=== PATIENT | female | born 1960 | race Caucasian/White ===

== ENCOUNTER 2016-09-14 12:17 | Emergency (ER) | payer BC ==
[2016-09-14 14:41] VITALS: BP 128/85
--- NOTE | 2016-09-14 15:13 | ED ---
Laceration/Wound HPI - HPI Summary HPI Summary: Patient is a 56yo otherwise healthy F who presents after sustaining a superficial laceration to the right wrist while making ceramic figures. She states there was minimal blood loss, she washed and wrapped it immediately. She denies numbness/tingling or color or temperature changes. She denies other injuries. She notes to CTS in the right wrist, but has never had a laceration to the area. She is otherwise heatlhy. She denies known particles in the wrist and states the ceramic cut was clean and laceration was obtained with 1 large particle. She took an Ibuprofen this morning for CTS but denies other medication use. UTD with tetanus. - History of Current Complaint Stated Complaint: ARM LACERATION Time Seen by Provider: 09/14/16 12:28 Hx Obtained From: Patient Mechanism of Injury: Sharp/Blunt Trauma - ceramic shard Aggravating: Nothing Alleviating: Nothing Timing: Constant Onset Severity: Mild Current Severity: None Pain Intensity: 0 Pain Scale Used: 0-10 Numeric Associated Signs & Symptoms: Negative Related Hx: Dominant Hand (Right) - Allergy/Home Medications Allergies/Adverse Reactions: Allergies Allergy/AdvReac Type Severity Reaction Status Date / Time Metronidazole [From Flagyl] Allergy Hives Verified 07/21/16 11:11 PMH/Surg Hx/FS Hx/Imm Hx Previously Healthy: Yes Endocrine/Hematology History: Denies: Hx Diabetes Cardiovascular History: Denies: Hx Hypertension, Hx Pacemaker/ICD Respiratory History: Reports: Hx Asthma - LAST ATTACK 20+ YRS AGO Musculoskeletal History: Denies: Hx Osteoporosis Sensory History: Reports: Hx Contacts or Glasses - DRIVING Denies: Hx Hearing Aid Opthamlomology History: Reports: Hx Contacts or Glasses - DRIVING Psychiatric History: Denies: Hx Panic Disorder - Cancer History Hx Chemotherapy: No Hx Radiation Therapy: No - Immunization History Hx Pertussis Vaccination: No Immunizations Up to Date: Yes Infectious Disease History: No Infectious Disease History: Denies: Traveled Outside the [place] in Last 30 Days - Social History Occupation: Employed Full-time Lives: With Family Alcohol Use: Daily Alcohol Amount: GLASS OF WINE Hx Substance Use: No Substance Use Type: Reports: None Hx Tobacco Use: No Smoking Status (MU): Never Smoked Tobacco Do You Chew or Dip Tobacco: No Have You Chewed or Dipped Tobacco in the LAST YEAR: No Review of Systems Constitutional: Negative Eyes: Negative Respiratory: Negative Gastrointestinal: Negative Positive: no symptoms reported, see HPI Musculoskeletal: Negative Positive: Other - small 1.5cm laceration to the ventral surface of the right wrist Neurological: Negative All Other Systems Reviewed And Are Negative: Yes Physical Exam Triage Information Reviewed: Yes Vital Signs On Initial Exam: Initial Vitals Temp Pulse Resp BP Pulse Ox 97.9 F 65 20 130/85 100 09/14/16 12:20 09/14/16 12:20 09/14/16 12:20 09/14/16 12:20 09/14/16 12:20 Vital Signs Reviewed: Yes Appearance: Positive: Well-Appearing, No Pain Distress, Well-Nourished Skin: Positive: Warm, Skin Color Reflects Adequate Perfusion, Other - laceration to the ventral surface of the right wrist Head/Face: Positive: Normal Head/Face Inspection Eyes: Positive: Normal, EOMI, QAMAR, Conjunctiva Clear Neck: Positive: Supple, Nontender, No Lymphadenopathy Respiratory/Lung Sounds: Positive: Clear to Auscultation, Breath Sounds Present Cardiovascular: Positive: Normal, RRR Musculoskeletal: Positive: Normal, Strength/ROM Intact Neurological: Positive: Normal, Sensory/Motor Intact AVPU Assessment: Alert - Odalys Coma Scale Best Eye Response: 4 - Spontaneous Best Motor Response: 6 - Obeys Commands Best Verbal Response: 5 - Oriented Procedures - Laceration/Wound Repair 1 Location: upper extremity Description: Linear Anesthesia: 1.0% Betadine Prep?: No Laceration/Wound Explored: clean Suture Type: Prolene Number of Sutures: 3 Layer Closure?: No Sterile Dressing Applied?: No Diagnostics - Vital Signs Vital Signs Temp Pulse Resp BP Pulse Ox 09/14/16 13:25 97.7 F 67 18 128/85 100 09/14/16 12:20 97.9 F 65 20 130/85 100 - Laboratory Lab Statement: Any lab studies that have been ordered have been reviewed, and results considered in the medical decision making process. Laceration Repair Course/Dx - Course Course Of Treatment: Irrigated wound with 30cc normal saline. no debridement necessary. Clean linear laceration of the right wrist - superficially with no NV compromise. Tetanus already UTD. Lidocaine 2% without epi used for local anesthetic. 3 non-absorbable prolene sutures placed. Patient tolerated well. Minimal bleeding. Placed telfa dressing over wound with compression dressing d/ t bleeding. Patient will follow up next week with PCP for suture removal. Instructions given. No xray or abx needed. - Differential Dx Differental Diagnoses: Avulsion, Laceration, Tendon Laceration - Clinical Impression Provider Diagnoses: Laceration of wrist Discharge - Discharge Plan Condition: Stable Disposition: HOME Patient Education Materials: Care For Your Stitches (ED) Referrals: Roberta Josue P[facility] EXTRACTION TENDER [Primary Care Provider] - Additional Instructions: Suture removal in 7 days. Keep covered until tomorrow afternoon. You may then switch the bandage to a gauze wrap if you are outside or in dirty elements Otherwise, you may leave open to air and may get the area wet with soap and water. Do not scrub the area. If you develop signs of infection such as redness, warmth, red streaking around the wound, drainage or you develop a fever, please come back to the ED. Follow up with your PCP. Images - Images Full Body (No Head): 1 - 1.5cm superficial laceration to the right ventral side of wrist without signs of infection, minimal blood loss. 3 sutures placed
== END 2016-09-14 15:10 | disposition home or self-care (01) ==
LOC: ED 12:17
DX: S61.511A Laceration without foreign body of right wrist, initial encounter (principal); W26.9XXA Contact with unspecified sharp object(s), initial encounter; Y93.9 Activity, unspecified; Y92.9 Unspecified place or not applicable
CPT/HCPCS: 12001; 99282